=== PATIENT | male | born 1975 | race Caucasian/White ===

== ENCOUNTER 2017-09-29 10:51 | Emergency (ER) | payer BC, OTHER ==
[2017-09-29] MEDS: NS 1,000 ML IV (13:05)
[2017-09-29 13:16] LABS: BASO # 0.1 10^3/uL (0.0-0.2); BASO % 0.6 % (0.0-1.0); EOS # 0.2 10^3/uL (0.0-0.50); EOS % 1.9 % (0.0-3.0); HEMATOCRIT 44.9 % (42.0-52.0); HEMOGLOBIN 15.5 g/dl (14.0-18.0); IMMATURE GRANULOCYTE % 0.3 % (0-3.0); LYMPH # 2.7 10^3/uL (1.5-4.5); LYMPH % 29.5 % (24.0-44.0); MEAN CORPUSCULAR HEMOGLOBIN 29.4 pg (27.0-33.0); MEAN CORPUSCULAR HGB CONC 34.5 g/dl (32.0-36.5); MONO # 0.7 10^3/uL (0.0-0.8); MONO % 7.4 % (0.0-5.0); NEUTROPHILS # 5.6 10^3/uL (1.8-7.7); NEUTROPHILS % 60.3 % (36.0-66.0); PLATELET COUNT, AUTOMATED 280 10^3/uL (150-450); RED BLOOD COUNT 5.28 10^6/uL (4.30-6.10); WHITE BLOOD COUNT 9.2 10^3/uL (4.0-10.0)
[2017-09-29 13:17] LABS: VENOUS BASE EXCESS 0.9 (-2.0-2.0); VENOUS HCO3 27.7 MEQ/L (23.0-27.0); VENOUS PARTIAL PRESSURE CO2 52.3 mmHg (38.0-50.0); VENOUS PARTIAL PRESSURE O2 34.7 mmHg (30.0-50.0); VENOUS PH 7.342 UNITS (7.330-7.430); VENOUS STANDARD HCO3 24.3 MEQ/L; VENOUS TOTAL CO2 29.3 MEQ/L (24.0-28.0)
[2017-09-29 13:35] LABS: KETONE, URINE AUTO RFX NEGATIVE (NEGATIVE); LEUKOCYTE ESTERASE UR AUTO RFX NEGATIVE (NEGATIVE); MUCUS, URINE RFX SMALL (NEGATIVE); NITRITE, URINE AUTO RFX NEGATIVE (NEGATIVE); RBC, URINE AUTO RFX 1 /HPF (0-3); SQUAM EPITHELIAL CELL UR AURFX 0 /HPF (0-6); WBC, URINE AUTO RFX 1 /HPF (0-3)
[2017-09-29 13:45] LABS: ALBUMIN 3.9 GM/DL (3.2-5.2); ALBUMIN/GLOBULIN RATIO 1.05 (1.00-1.93); ALT/SGPT 49 U/L (12-78); ANION GAP 5 MEQ/L (8-16); AST/SGOT 32 U/L (7-37); BILIRUBIN,DIRECT 0.2 MG/DL (0.0-0.2); BLOOD UREA NITROGEN 12 MG/DL (7-18); CALCIUM LEVEL 8.3 MG/DL (8.5-10.1); CARBON DIOXIDE LEVEL 30 MEQ/L (21-32); CHLORIDE LEVEL 100 MEQ/L (98-107); CPK CREATINE PHOSPHOKINASE 213 U/L (39-308); CREATININE FOR GFR 0.82 MG/DL (0.70-1.30); GLOMERULAR FILTRATION RATE > 60.0 (>60); GLUCOSE, FASTING 258 MG/DL (70-100); LIPASE 90 U/L (73-393); POTASSIUM SERUM 4.1 MEQ/L (3.5-5.1); SALICYLATE LEVEL < 1.7 MG/DL (5.0-30.0); SODIUM LEVEL 135 MEQ/L (136-145); TOTAL PROTEIN 7.6 GM/DL (6.4-8.2); TROPONIN I < 0.02 NG/ML (< 0.10)
[2017-09-29 13:51] LABS: ACETAMINOPHEN LEVEL < 2.0 UG/ML (10.0-30.0); ALKALINE PHOSPHATASE 146 U/L (45-117); CK-MB VALUE MASS 1.7 NG/ML (0.0-3.6); ETHYL ALCOHOL (ETHANOL) < 0.003 % (0.000-0.010); MB/CK RELATIVE INDEX 0.79 (< OR =4)
[2017-09-29 13:54] LABS: AMPHETAMINES LEVEL URINE NEGATIVE (NEGATIVE); BARBITURATES URINE NEGATIVE (NEGATIVE); BENZODIAZEPINES URINE NEGATIVE (NEGATIVE); CANNABINOIDS URINE POSITIVE (NEGATIVE); COCAINE METABOLITE URINE NEGATIVE (NEGATIVE); METHADONE URINE NEGATIVE (NEGATIVE); OPIATES URINE NEGATIVE (NEGATIVE); PHENCYCLIDINE URINE NEGATIVE (NEGATIVE)
[2017-09-29 14:03] LABS: ESTIMATED AVERAGE GLUCOSE 232 MG/DL (60-110); HEMOGLOBIN A1c 9.7 %
[2017-09-29] MEDS: metFORMIN (GLUCOPHAGE) 500 MG TAB PO (14:58)
== END 2017-09-29 15:01 | disposition home or self-care (01) ==
LOC: M ED 10:51
DX: E11.65 Type 2 diabetes mellitus with hyperglycemia (principal); E11.40 Type 2 diabetes mellitus with diabetic neuropathy, unspecified
CPT/HCPCS: 71046

== ENCOUNTER → 2017-10-02 | Outpatient (REF) | payer OTHER ==
[2017-10-02 13:46] LABS: ANION GAP 4 MEQ/L (8-16); BLOOD UREA NITROGEN 13 MG/DL (7-18); CALCIUM LEVEL 8.6 MG/DL (8.5-10.1); CARBON DIOXIDE LEVEL 31 MEQ/L (21-32); CHLORIDE LEVEL 102 MEQ/L (98-107); CREATININE FOR GFR 0.81 MG/DL (0.70-1.30); GLOMERULAR FILTRATION RATE > 60.0 (>60); GLUCOSE, FASTING 191 MG/DL (70-100); POTASSIUM SERUM 4.8 MEQ/L (3.5-5.1); SODIUM LEVEL 137 MEQ/L (136-145)
[2017-10-02 16:35] LABS: MALB URINE SIEMENS 14.1 MG/L; MAU/CREAT RATIO 7.5 MCG/MG (0.0-30.0)
== END ==
LOC: M SFHCPLAZ 11:44
DX: E11.65 Type 2 diabetes mellitus with hyperglycemia (principal)
CPT/HCPCS: 82043

== ENCOUNTER 2018-04-05 20:32 | Emergency (ER) | payer BC, OTHER ==
[2018-04-05] MEDS: PERCOCET 5MG/325MG TAB PO (22:38)
[2018-04-05] MEDS: MORPHINE 4 MG/ML 1ML VIAL/SYRINGE (J2270) IV (23:48)
[2018-04-06] MEDS: NS 1,000 ML IV (00:19)
[2018-04-06] MEDS ORDERED: ISOVUE-370 76% 100ML VIAL (Q9967) As Ordered (00:48)
[2018-04-06 00:53] LABS: CREATININE FOR GFR 1.07 MG/DL (0.70-1.30); GLOMERULAR FILTRATION RATE > 60.0 (>60)
[2018-04-06 00:53] LABS: BLOOD UREA NITROGEN 15 MG/DL (7-18)
[2018-04-06] MEDS: OXYCODONE/APAP 5MG/325MG(BULK FOR ED) 1 TABLET PO (02:46)
== END 2018-04-06 02:57 | disposition home or self-care (01) ==
LOC: M ED 04-06 02:57
DX: T14.8XXA Other injury of unspecified body region, initial encounter (principal); R93.7 Abnormal findings on diagnostic imaging of other parts of musculoskeletal system; V20.4XXA Motorcycle driver injured in collision with pedestrian or animal in traffic accident, initial encounter; Y92.410 Unspecified street and highway as the place of occurrence of the external cause; E11.9 Type 2 diabetes mellitus without complications; Z79.84 Long term (current) use of oral hypoglycemic drugs
CPT/HCPCS: J2270

== ENCOUNTER → 2018-12-17 | Outpatient (CLI) | payer OTHER, BC ==
[~2018-12-17] MED LIST: IBUP-1022 PO; METF500T13 PO; PERC5TAB12 PO
[2018-12-17 13:25] LABS: CHOLESTEROL RISK RATIO 4.394 (<5)
[2018-12-17 13:53] LABS: MAU/CREAT RATIO 17.6 MCG/MG (0.0-30.0)
[2018-12-17 18:12] LABS: HEMOGLOBIN A1c 10.5 %
== END ==
LOC: M WUC 09:56
PROVIDERS: ATTEND Student in an Organized Health Care Education/Training Program
DX: E11.9 Type 2 diabetes mellitus without complications (principal)

== ENCOUNTER → 2019-04-25 | Outpatient (REF) | payer OTHER ==
[2019-04-25 13:53] LABS: HEMOGLOBIN A1c 6.6 %
== END ==
LOC: M SFHCPLAZ 10:53
PROVIDERS: ATTEND Family Medicine
DX: E11.65 Type 2 diabetes mellitus with hyperglycemia (principal)

== ENCOUNTER → 2019-07-22 | Outpatient (CLI) | payer OTHER | LOC: M WUC 09:46 | PROVIDERS: ATTEND Obstetrics & Gynecology | DX: E11.65 Type 2 diabetes mellitus with hyperglycemia (principal) ==

== ENCOUNTER → 2019-10-27 | Outpatient (CLI) | payer OTHER ==
[2019-10-27 16:44] LABS: CHOLESTEROL RISK RATIO 6.09 (<5)
[2019-10-27 17:18] LABS: MALB URINE SIEMENS 9.5 MG/L; MAU/CREAT RATIO 3.9 MCG/MG (0.0-30.0)
== END ==
LOC: M WUC 11:31
PROVIDERS: ATTEND Obstetrics & Gynecology
DX: Z13.220 Encounter for screening for lipoid disorders (principal); E11.65 Type 2 diabetes mellitus with hyperglycemia

== ENCOUNTER → 2020-11-16 | Outpatient (CLI) | payer OTHER ==
[2020-11-16 11:58] LABS: BASO # 0.1 10^3/uL (0.0-0.2); BASO % 0.5 % (0.0-1.0); EOS # 0.2 10^3/uL (0.0-0.5); EOS % 2.4 % (0.0-3.0); HEMATOCRIT 48.9 % (42.0-52.0); HEMOGLOBIN 15.9 g/dl (13.5-17.5); LYMPH # 2.4 10^3/uL (1.5-5.0); LYMPH % 24.5 % (24.0-44.0); MEAN CORPUSCULAR HEMOGLOBIN 29.2 pg (27.0-33.0); MEAN CORPUSCULAR HGB CONC 32.5 g/dl (32.0-36.5); MEAN CORPUSCULAR VOLUME 89.7 fl (80.0-96.0); MONO # 0.9 10^3/uL (0.0-0.8); MONO % 8.7 % (2.0-8.0); NEUTROPHILS # 6.2 10^3/uL (1.5-8.5); NEUTROPHILS % 63.6 % (36.0-66.0); PLATELET COUNT, AUTOMATED 243 10^3/uL (150-450); RED BLOOD COUNT 5.45 10^6/uL (4.30-6.10); WHITE BLOOD COUNT 9.8 10^3/uL (4.0-10.0)
[2020-11-16 12:47] LABS: ALT/SGPT 56 U/L (12-78); BILIRUBIN,TOTAL 0.7 MG/DL (0.2-1.0); BLOOD UREA NITROGEN 13 MG/DL (7-18); CALCIUM LEVEL 9.7 MG/DL (8.5-10.1); CARBON DIOXIDE LEVEL 29 MEQ/L (21-32); CHLORIDE LEVEL 103 MEQ/L (98-107); CHOLESTEROL LEVEL 232 MG/DL (<200); CREATININE FOR GFR 0.82 MG/DL (0.70-1.30); GLOMERULAR FILTRATION RATE > 60.0 (>60); GLUCOSE, FASTING 121 MG/DL (70-100); HDL CHOLESTEROL 37 MG/DL (>40); LDL CHOLESTEROL 161 MG/DL (<100); NON-HDL-C 195 MG/DL; POTASSIUM SERUM 4.4 MEQ/L (3.5-5.1); SODIUM LEVEL 138 MEQ/L (136-145); TOTAL PROTEIN 7.4 GM/DL (6.4-8.2); TRIGLYCERIDES LEVEL 170 MG/DL (<150)
[2020-11-16 13:06] LABS: MALB URINE SIEMENS 8.5 MG/L; MAU/CREAT RATIO 4.1 MCG/MG (0.0-30.0)
[2020-11-16 13:57] LABS: HEMOGLOBIN A1c 6.4 %
== END ==
LOC: M WUC 09:20
PROVIDERS: ATTEND Internal Medicine
DX: E11.65 Type 2 diabetes mellitus with hyperglycemia (principal); E78.49 Other hyperlipidemia

== ENCOUNTER 2021-11-27 11:35 | Emergency (ER) | payer BC, OTHER ==
[~2021-11-27] VITALS: Ht 185.4 cm; Wt 115.0 kg
[2021-11-27] MEDS ORDERED: NS 1,000 ML IV ONE (15:15)
[2021-11-27 15:36] LABS: ABG BASE EXCESS -1.3 (-2.0-2.0); ABG HCO3 23.2 MEQ/L (22.0-26.0); ABG O2 SATURATION 96.8 % (95.0-99.0); ABG PARTIAL PRESSURE CO2 38.7 mmHg (35.0-45.0); ABG PARTIAL PRESSURE O2 85.7 mmHg (75.0-100.0); ABG STANDARD HCO3 23.4 MEQ/L (22.0-26.0); ABG TOTAL CO2 24.4 MEQ/L (22.0-29.0); ABG pH (ARTERIAL) 7.396 UNITS (7.350-7.450)
[2021-11-27 16:11] LABS: BASO # 0.1 10^3/uL (0.0-0.2); BASO % 0.5 % (0.0-1.0); EOS # 0.2 10^3/uL (0.0-0.5); EOS % 1.7 % (0.0-3.0); HEMATOCRIT 46.5 % (42.0-52.0); HEMOGLOBIN 16.1 g/dl (13.5-17.5); LYMPH # 2.9 10^3/uL (1.5-5.0); LYMPH % 27.4 % (24.0-44.0); MEAN CORPUSCULAR HEMOGLOBIN 29.8 pg (27.0-33.0); MEAN CORPUSCULAR HGB CONC 34.6 g/dl (32.0-36.5); MONO # 0.7 10^3/uL (0.0-0.8); NEUTROPHILS # 6.6 10^3/uL (1.5-8.5); NEUTROPHILS % 63.1 % (36.0-66.0); PLATELET COUNT, AUTOMATED 284 10^3/uL (150-450); RED BLOOD COUNT 5.41 10^6/uL (4.30-6.10); WHITE BLOOD COUNT 10.4 10^3/uL (4.0-10.0)
[2021-11-27 16:35] LABS: ACETONE/KETONE 1.54 MG/DL (<2.81); ALBUMIN 4.2 GM/DL (3.2-5.2); ALT/SGPT 63 U/L (12-78); BILIRUBIN,DIRECT 0.2 MG/DL (0.0-0.2); BILIRUBIN,TOTAL 0.7 MG/DL (0.2-1.0); BLOOD UREA NITROGEN 13 MG/DL (7-18); CALCIUM LEVEL 9.4 MG/DL (8.5-10.1); CARBON DIOXIDE LEVEL 30 MEQ/L (21-32); CHLORIDE LEVEL 101 MEQ/L (98-107); CREATININE FOR GFR 0.99 MG/DL (0.70-1.30); GLOMERULAR FILTRATION RATE > 60.0 (>60); GLUCOSE, FASTING 312 MG/DL (70-100); LIPASE 85 U/L (73-393); MAGNESIUM LEVEL 2.1 MG/DL (1.8-2.4); PHOSPHORUS LEVEL 3.3 MG/DL (2.5-4.9); POTASSIUM SERUM 4.2 MEQ/L (3.5-5.1); SODIUM LEVEL 135 MEQ/L (136-145); TOTAL PROTEIN 7.8 GM/DL (6.4-8.2)
[2021-11-27 17:48] LABS: OSMOLALITY SERUM 295 MOSM/KG (275-295)
[2021-11-27 18:20] VITALS: BP 138/91
[2021-11-27 18:42] LABS: HEMOGLOBIN A1c 10.4 %
== END 2021-11-27 19:29 | disposition home or self-care (01) ==
LOC: M ED 11:35
DX: E11.65 Type 2 diabetes mellitus with hyperglycemia (principal); Z79.84 Long term (current) use of oral hypoglycemic drugs

== ENCOUNTER → 2021-11-28 | Outpatient (REF) | payer BC, OTHER ==
[2021-11-28 13:15] LABS: HEMOGLOBIN 16.4 g/dl (13.5-17.5); MEAN CORPUSCULAR HEMOGLOBIN 29.5 pg (27.0-33.0); MEAN CORPUSCULAR HGB CONC 33.5 g/dl (32.0-36.5); MEAN CORPUSCULAR VOLUME 88.3 fl (80.0-96.0); PLATELET COUNT, AUTOMATED 248 10^3/uL (150-450); RED BLOOD COUNT 5.55 10^6/uL (4.30-6.10); WHITE BLOOD COUNT 10.4 10^3/uL (4.0-10.0)
[2021-11-28 13:27] LABS: ALT/SGPT 62 U/L (12-78); BILIRUBIN,TOTAL 0.6 MG/DL (0.2-1.0); BLOOD UREA NITROGEN 14 MG/DL (7-18); CALCIUM LEVEL 9.4 MG/DL (8.5-10.1); CARBON DIOXIDE LEVEL 31 MEQ/L (21-32); CHLORIDE LEVEL 102 MEQ/L (98-107); CHOLESTEROL LEVEL 207 MG/DL (<200); CREATININE FOR GFR 0.98 MG/DL (0.70-1.30); GLOMERULAR FILTRATION RATE > 60.0 (>60); GLUCOSE, FASTING 352 MG/DL (70-100); POTASSIUM SERUM 4.6 MEQ/L (3.5-5.1); SODIUM LEVEL 135 MEQ/L (136-145); TRIGLYCERIDES LEVEL 238 MG/DL (<150)
[2021-11-28 13:28] LABS: ALBUMIN 4.1 GM/DL (3.2-5.2); CHOLESTEROL RISK RATIO 6.468 (<5); FREE T4 1.03 NG/DL (0.76-1.46); HDL CHOLESTEROL 32 MG/DL (>40); LDL CHOLESTEROL 127 MG/DL (<100); NON-HDL-C 175 MG/DL; TOTAL 25(OH) VITAMIN D 18.3 NG/ML (30.0-100.0); TOTAL PROTEIN 7.8 GM/DL (6.4-8.2); VITAMIN B12 LEVEL 575 PG/ML (247-911)
[2021-11-28 13:37] LABS: HEMOGLOBIN A1c 10.2 %
[2021-11-28 13:55] LABS: MALB URINE SIEMENS 18.6 MG/L; MAU/CREAT RATIO 22.4 MCG/MG (0.0-30.0)
== END ==
LOC: M PLALAB 12:43
PROVIDERS: ATTEND Internal Medicine Hematology
DX: E11.65 Type 2 diabetes mellitus with hyperglycemia (principal)

== ENCOUNTER → 2022-03-04 | Outpatient (REF) | payer OTHER ==
[2022-03-04 16:42] LABS: HEMATOCRIT 47.1 % (42.0-52.0); HEMOGLOBIN 15.5 g/dl (13.5-17.5); MEAN CORPUSCULAR HEMOGLOBIN 29.5 pg (27.0-33.0); MEAN CORPUSCULAR HGB CONC 32.9 g/dl (32.0-36.5); MEAN CORPUSCULAR VOLUME 89.5 fl (80.0-96.0); PLATELET COUNT, AUTOMATED 278 10^3/uL (150-450); RED BLOOD COUNT 5.26 10^6/uL (4.30-6.10)
[2022-03-04 17:46] LABS: ALT/SGPT 35 U/L (12-78); BILIRUBIN,TOTAL 0.7 MG/DL (0.2-1.0); BLOOD UREA NITROGEN 9 MG/DL (7-18); CALCIUM LEVEL 9.3 MG/DL (8.5-10.1); CARBON DIOXIDE LEVEL 27 MEQ/L (21-32); CHLORIDE LEVEL 107 MEQ/L (98-107); CHOLESTEROL LEVEL 207 MG/DL (<200); CHOLESTEROL RISK RATIO 5.447 (<5); CREATININE FOR GFR 0.91 MG/DL (0.70-1.30); FREE T4 0.88 NG/DL (0.76-1.46); GLOMERULAR FILTRATION RATE > 60.0 (>60); GLUCOSE, FASTING 103 MG/DL (70-100); HDL CHOLESTEROL 38 MG/DL (>40); LDL CHOLESTEROL 143 MG/DL (<100); NON-HDL-C 169 MG/DL; POTASSIUM SERUM 4.8 MEQ/L (3.5-5.1); SODIUM LEVEL 140 MEQ/L (136-145); TOTAL PROTEIN 7.5 GM/DL (6.4-8.2); TRIGLYCERIDES LEVEL 129 MG/DL (<150)
[2022-03-04 18:08] LABS: MALB URINE SIEMENS 6.6 MG/L
[2022-03-04 18:26] LABS: HEMOGLOBIN A1c 6.2 %
== END ==
LOC: M LABWUC 16:15
PROVIDERS: ATTEND Internal Medicine Hematology
DX: E11.65 Type 2 diabetes mellitus with hyperglycemia (principal)

== ENCOUNTER → 2022-11-24 | Outpatient (REF) | payer OTHER ==
[2022-11-24 11:10] LABS: C REACTIVE PROTEIN QUANTITATIV < 0.40 MG/DL (<1.0)
[2022-11-24 11:11] LABS: HEMATOCRIT 44.3 % (42.0-52.0); HEMOGLOBIN 14.5 g/dl (13.5-17.5); MEAN CORPUSCULAR HEMOGLOBIN 29.6 pg (27.0-33.0); MEAN CORPUSCULAR HGB CONC 32.7 g/dl (32.0-36.5); MEAN CORPUSCULAR VOLUME 90.4 fl (80.0-96.0); PLATELET COUNT, AUTOMATED 289 10^3/uL (150-450); WHITE BLOOD COUNT 9.2 10^3/uL (4.0-10.0)
[2022-11-24 11:12] LABS: ALBUMIN 3.5 G/DL (3.2-5.2); ALKALINE PHOSPHATASE 84 U/L (46-116); ALT/SGPT 42 U/L (7.0-40); AST/SGOT 25 U/L (<34); BILIRUBIN,TOTAL 0.7 MG/DL (0.3-1.2); BLOOD UREA NITROGEN 11 MG/DL (9-23); CALCIUM LEVEL 8.3 MG/DL (8.5-10.1); CARBON DIOXIDE LEVEL 29 MMOL/L (20-31); CHLORIDE LEVEL 106 MMOL/L (98-107); CHOLESTEROL LEVEL 177 MG/DL (<200); CHOLESTEROL RISK RATIO 6.21 (<5); CREATININE FOR GFR 0.82 MG/DL (0.70-1.30); GLOMERULAR FILTRATION RATE > 60.0 (>60); GLUCOSE, FASTING 95 MG/DL (60-100); HDL CHOLESTEROL 28.5 MG/DL (>40); LDL CHOLESTEROL 107.1 MG/DL (<100); NON-HDL-C 148.5 MG/DL; POTASSIUM SERUM 4.3 MMOL/L (3.5-5.1); SODIUM LEVEL 138 MMOL/L (136-145); TOTAL PROTEIN 6.6 G/DL (5.7-8.2); TRIGLYCERIDES LEVEL 207 MG/DL (<150)
[2022-11-24 11:13] LABS: THYROID STIMULATING HORMONE 1.373 uIU/ML (0.55-4.78); TOTAL 25(OH) VITAMIN D 26.3 NG/ML (20.0-100.0)
[2022-11-24 11:14] LABS: FREE T4 0.92 NG/DL (0.89-1.76); VITAMIN B12 LEVEL 509 PG/ML (211-911)
[2022-11-24 11:16] LABS: HEMOGLOBIN A1c 6.1 % (4.0-6.0)
[2022-11-24 11:35] LABS: CREATININE, URINE 275.3 MG/DL
== END ==
LOC: M SFHCPLAZ 09:57
PROVIDERS: ATTEND Internal Medicine Hematology
DX: E11.65 Type 2 diabetes mellitus with hyperglycemia (principal)

== ENCOUNTER 2023-08-22 15:29 | Emergency (ER) | payer BC, OTHER ==
[~2023-08-22] VITALS: Ht 185.4 cm; Wt 109.4 kg
[2023-08-22] MEDS ORDERED: SEMA1PEN2 (15:41)
[2023-08-22] MEDS ORDERED: METF10004 (15:41)
[2023-08-22 16:29] LABS: RSV AMPLIFICATION NEGATIVE (NEGATIVE)
[2023-08-22 19:36] LABS: BASO # 0.1 10^3/uL (0.0-0.2); BASO % 0.3 % (0.0-1.0); EOS # 0.3 10^3/uL (0.0-0.5); EOS % 1.9 % (0.0-3.0); HEMATOCRIT 48.3 % (42.0-52.0); HEMOGLOBIN 16.8 g/dl (13.5-17.5); LYMPH # 2.9 10^3/uL (1.5-5.0); LYMPH % 17.6 % (24.0-44.0); MEAN CORPUSCULAR HEMOGLOBIN 29.9 pg (27.0-33.0); MEAN CORPUSCULAR HGB CONC 34.8 g/dl (32.0-36.5); MEAN CORPUSCULAR VOLUME 86.1 fl (80.0-96.0); MONO # 0.9 10^3/uL (0.0-0.8); MONO % 5.6 % (2.0-8.0); NEUTROPHILS % 74.3 % (36.0-66.0); PLATELET COUNT, AUTOMATED 329 10^3/uL (150-450); RED BLOOD COUNT 5.61 10^6/uL (4.30-6.10); WHITE BLOOD COUNT 16.2 10^3/uL (4.0-10.0)
[2023-08-22] MEDS ORDERED: ISOVUE-370 76% 100ML VIAL As Ordered ONE (19:41)
[2023-08-22 19:52] LABS: INR 1.17; PARTIAL THROMBOPLASTIN TIME 26.1 SECONDS (24.8-34.2); PROTHROMBIN TIME 14.6 SECONDS (12.5-14.5)
[2023-08-22 20:00] LABS: LIPASE 27 U/L (12-53)
[2023-08-22 20:08] LABS: ALKALINE PHOSPHATASE 128 U/L (46-116); ALT/SGPT 63 U/L (7.0-40); AST/SGOT 29 U/L (<34); BILIRUBIN,DIRECT 0.4 MG/DL (<0.4); BILIRUBIN,TOTAL 1.4 MG/DL (0.3-1.2); CK-MB VALUE MASS < 1.0 NG/ML (<3.6); CPK CREATINE PHOSPHOKINASE 132 U/L (46-171); MB/CK RELATIVE INDEX 0.75 (< OR =4); TOTAL PROTEIN 7.7 G/DL (5.7-8.2)
[2023-08-22 20:19] LABS: ALBUMIN 4.2 G/DL (3.2-5.2)
[2023-08-22] MEDS ORDERED: NS 1,000 ML IV ONE (21:00)
[2023-08-22] MEDS ORDERED: diphenhydrAMINE 50MG/ML VIAL IV ONE (21:40)
[2023-08-22] MEDS ORDERED: KETOROLAC 30 MG/ML 1ML VIAL IV ONE (21:40)
[2023-08-22] MEDS ORDERED: METOCLOPRAMIDE INJ 10MG/2ML VIAL IV ONE (21:40)
[2023-08-22 22:53] VITALS: BP 143/82; TEMP 96.9; O2SAT 99
== END 2023-08-22 22:59 | disposition home or self-care (01) ==
LOC: M ED 15:29
DX: T88.7XXA Unspecified adverse effect of drug or medicament, initial encounter (principal); R19.7 Diarrhea, unspecified; R11.2 Nausea with vomiting, unspecified; I45.10 Unspecified right bundle-branch block; E11.9 Type 2 diabetes mellitus without complications; I10 Essential (primary) hypertension; Z79.4 Long term (current) use of insulin; Z79.84 Long term (current) use of oral hypoglycemic drugs
CPT/HCPCS: 71046; 74177; 80047; 80076; 82550; 82553; 83690; 84484; 85025; 85610; 85730; 87486; 87581; 87631; 87633; 87798; 93005; 93041; 96361; 96374; 96375; 99284; J1200; J1885; J2765; Q9967

== ENCOUNTER → 2023-09-15 | Outpatient (REF) | payer OTHER ==
[~2023-09-15] MED LIST changes: +METF10004; +SEMA1PEN2
[2023-09-15 14:15] LABS: HEMATOCRIT 45.1 % (42.0-52.0); HEMOGLOBIN 14.7 g/dl (13.5-17.5); MEAN CORPUSCULAR HEMOGLOBIN 29.5 pg (27.0-33.0); MEAN CORPUSCULAR HGB CONC 32.6 g/dl (32.0-36.5); MEAN CORPUSCULAR VOLUME 90.4 fl (80.0-96.0); PLATELET COUNT, AUTOMATED 281 10^3/uL (150-450); RED BLOOD COUNT 4.99 10^6/uL (4.30-6.10); WHITE BLOOD COUNT 9.5 10^3/uL (4.0-10.0)
[2023-09-15 14:28] LABS: C REACTIVE PROTEIN QUANTITATIV < 0.40 MG/DL (<1.0); HEMOGLOBIN A1c 9.5 % (4.0-6.0)
[2023-09-15 14:30] LABS: ALBUMIN 3.7 G/DL (3.2-5.2); ALKALINE PHOSPHATASE 101 U/L (46-116); ALT/SGPT 39 U/L (7.0-40); AST/SGOT 17 U/L (<34); BILIRUBIN,TOTAL 0.7 MG/DL (0.3-1.2); BLOOD UREA NITROGEN 9 MG/DL (9-23); CALCIUM LEVEL 8.5 MG/DL (8.5-10.1); CARBON DIOXIDE LEVEL 30 MMOL/L (20-31); CHLORIDE LEVEL 104 MMOL/L (98-107); CHOLESTEROL LEVEL 169 MG/DL (<200); CHOLESTEROL RISK RATIO 5.76 (<5); CREATININE FOR GFR 0.73 MG/DL (0.70-1.30); FREE T4 1.14 NG/DL (0.89-1.76); GLOMERULAR FILTRATION RATE > 60.0 (>60); GLUCOSE, FASTING 152 MG/DL (60-100); HDL CHOLESTEROL 29.3 MG/DL (>40); LDL CHOLESTEROL 102.9 MG/DL (<100); NON-HDL-C 139.7 MG/DL; POTASSIUM SERUM 4.3 MMOL/L (3.5-5.1); SODIUM LEVEL 139 MMOL/L (136-145); THYROID STIMULATING HORMONE 1.812 uIU/ML (0.55-4.78); TOTAL 25(OH) VITAMIN D 15.2 NG/ML (20.0-100.0); TOTAL PROTEIN 6.4 G/DL (5.7-8.2); TRIGLYCERIDES LEVEL 184 MG/DL (<150); VITAMIN B12 LEVEL 315 PG/ML (211-911)
[2023-09-15 14:57] LABS: CREATININE, URINE 245.9 MG/DL
[2023-09-15 15:45] LABS: HIV 1&2 SCREEN NEGATIVE (NEGATIVE)
[2023-09-15 15:53] LABS: HEPATITIS C VIRUS ABY INDEX 0.02 INDEX (<0.8)
[2023-09-15 17:16] LABS: CHLAMYDIA DNA AMPLIFICATION NEGATIVE (NEGATIVE); GC DNA AMPLIFICATION NEGATIVE (NEGATIVE)
== END ==
LOC: M SFHCPLAZ 12:32
PROVIDERS: ATTEND Internal Medicine Pulmonary Disease
DX: E11.65 Type 2 diabetes mellitus with hyperglycemia (principal); Z11.9 Encounter for screening for infectious and parasitic diseases, unspecified

== ENCOUNTER → 2024-07-25 | Outpatient (REF) | payer OTHER, BC | LOC: M LAB REF 16:06 | PROVIDERS: ATTEND Internal Medicine | DX: G62.9 Polyneuropathy, unspecified (principal) ==